=== PATIENT | female | born 1970 | race Caucasian/White ===

== ENCOUNTER 2018-08-12 17:18 | Emergency (ER) | payer MEDICAID ==
[2018-08-12] MEDS ORDERED: Acetaminophen/HYDROcodone 325-5 MG Tab PO ONE (17:19)
[2018-08-12 17:35] VITALS: BP 125/52
[2018-08-12] MEDS: LORazepam 2 MG/ML Syringe IM ONE (18:08)
--- NOTE | 2018-08-12 18:08 | EDM.PDOC ---
ED HPI GENERAL MEDICAL PROBLEM - General Chief Complaint: General Stated Complaint: MIGRAINE Time Seen by Provider: 08/12/18 17:32 Source of Information: Reports: Patient History Limitations: Reports: No Limitations - History of Present Illness INITIAL COMMENTS - FREE TEXT/NARRATIVE: Patient presents with complaints of migraine headache. has chronic headaches, does see neurology for these. Currently on Imitrex and Zofran which have not helped her today. Gets Botox injections every 3 months for these as well. Has had multiple visits in the ER in [place] for these, usually gets Ativan and Stadol for her headaches but on occasion has gotten hydrocodone from her neurologist despite the fact that narcotics are not recommended due to potentially causing rebound headaches. Admits that she got her last botox injections 2 weeks ago but has had approximately 10 migraines since that time. has allergy to Tramadol, has caused hallucinations so "neurologist is frustrated and does not know what to do with me either for these ". Cannot take NSAIDs or Toradol due to renal concerns. Has pain behind right eye, nausea and has an aura prior to these starting. No unusual symptoms from these. Is scheduled to see her primary care provider in [place] on Friday. Did call there today but was out of office until Friday. Onset: Today, Sudden Duration: Hour(s):, Constant Location: Reports: Head Quality: Reports: Sharp, Throbbing Severity: Severe Improves with: Reports: None Associated Symptoms: Reports: Nausea/Vomiting. Denies: Confusion, Chest Pain, Cough, Fever/Chills, Loss of Appetite, Shortness of Breath, Syncope, Weakness Treatments [employer] SU[employer] SPECIALIST: Reports: Acetaminophen, Other (see below) Other Treatments [employer] SUPPORT SPECIALIST: imitrex,zofran Headache Pain Score (Numeric/FACES): 10 - Related Data Allergies Allergy/AdvReac Type Severity Reaction Status Date / Time latex Allergy Intermediate Hives Verified 08/12/18 17:29 ibuprofen Allergy Renal Verified 08/08/18 13:04 Failure NSAIDS (Non-Steroidal Allergy Bleeding Verified 08/08/18 13:04 Anti-Inflamma rizatriptan benzoate Allergy Hives Verified 08/08/18 13:04 [From Maxalt] Sulfa (Sulfonamide Allergy Other Verified 08/12/18 17:29 Antibiotics) topiramate [From Topamax] Allergy Hallucinati Verified 08/08/18 13:04 ons tramadol Allergy Hallucinati Verified 08/12/18 18:01 ons toradol Allergy Renal Uncoded 07/30/18 19:21 Failure Home Meds: Home Meds Propranolol HCl 10 mg PO BID 03/06/13 [History] Cyanocobalamin (Vitamin B-12) [Cyanocobalamin Injection] 1 ml INJECT .MONTHLY [History] Multivitamin W/Iron, Minerals [Multivitamins with Iron] 1 tab PO DAILY 07/08/14 [History] Onabotulinumtoxina [Botox] 200 units SQ Q3M 06/17/17 [History] Aspirin 81 mg PO DAILY 03/05/18 [History] amLODIPine Besylate [Amlodipine Besylate] 5 mg PO DAILY 03/05/18 [History] Acetaminophen [Tylenol] 650 mg PO Q4H PRN tablet 05/17/18 [Rx] DULoxetine [Cymbalta] 20 mg PO BID 07/30/18 [History] QUEtiapine [SEROquel] 100 mg PO DAILY 07/30/18 [History] busPIRone [Buspar] 30 mg PO BID 07/30/18 [History] Folic Acid 1 mg PO DAILY 08/12/18 [History] Iron 1 tab PO DAILY 08/12/18 [History] Ondansetron [Zofran] 4 mg PO Q6H PRN 08/12/18 [History] Potassium Gluconate [Potassium] 1 tab PO DAILY 08/12/18 [History] SUMAtriptan Succinate [Imitrex] 100 mg PO BID 08/12/18 [History] Past Medical History HEENT History: Reports: Other (See Below) Other HEENT History: conjunctivitis, glasses et contacts Cardiovascular History: Reports: High Cholesterol, Hypertension Respiratory History: Reports: Bronchitis, Recurrent Gastrointestinal History: Reports: Other (See Below) Genitourinary History: Reports: Acute Renal Failure, Renal Disease Other Genitourinary History: acute kidney failure from drug interaction [employer]ATCH[employer] 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: Polycystic Ovaries, Musculoskeletal History: Reports: Back Pain, Chronic, Fracture, Osteoarthritis Neurological History: Reports: Head Trauma, Migraines, TIA Psychiatric History: Reports: Addiction, Anxiety, Bipolar, Depression, Panic Attack Endocrine/Metabolic History: Reports: Obesity/BMI 30+ Hematologic History: Reports: Anemia Other Hematologic History: Von Willebrand Coagapathy Immunologic History: Reports: None Other Immunologic History: Von Willebrand Coagapathy Oncologic (Cancer) History: Reports: None Dermatologic History: Reports: None - Infectious Disease History Infectious Disease History: Reports: Chicken Pox - Past Surgical History Head Surgeries/Procedures: Reports: None HEENT Surgical History: Reports: Tonsillectomy GI Surgical History: Reports: Bariatric Procedure, Cholecystectomy Other GI Surgeries/Procedures: polycystic tumurs Musculoskeletal Surgical History: Reports: Arthroscopic Knee, Other (See Below) Other Musculoskeletal Surgeries/Procedures:: bilateral, right ankle fracture repair Social & Family History - Family History Family Medical History: Noncontributory Musculoskeletal: Reports: Back pain, Chronic Other Musculoskeletal Family History: mother Neurological: Reports: CVA Other Neurological Family History: father Psychiatric: Reports: Other (See Below) Other Psychiatric Family History: ETOH addiction-father Oncologic: Reports: Pancreatic Other Oncologic Family History: father - Caffeine Use Caffeine Use: Reports: Soda Other Caffeine Use: 4 mtn dew/day Caffeine Use Comment: daily - Living Situation & Occupation Living situation: Reports: , with Family Occupation: Employed ED ROS GENERAL - Review of Systems Review Of Systems: See Below Constitutional: Denies: Fever, Chills, Malaise, Weakness, Decreased Appetite HEENT: Denies: Ear Pain, Sinus Problem, Throat Pain, Vertigo, Vision Change Respiratory: Denies: Shortness of Breath, Cough Cardiovascular: Denies: Chest Pain, Edema, Lightheadedness Endocrine: Denies: Fatigue GI/Abdominal: Reports: Nausea. Denies: Abdominal Pain, Vomiting : Reports: No Symptoms Musculoskeletal: Reports: No Symptoms Skin: Reports: No Symptoms Neurological: Reports: Headache. Denies: Confusion, Dizziness Psychiatric: Reports: No Symptoms ED EXAM, GENERAL - Physical Exam Exam: See Below Exam Limited By: No Limitations General Appearance: Alert, WD/WN, No Apparent Distress Eye Exam: Bilateral Eye: EOMI, PERRL Ears: Normal External Exam, Normal TMs Nose: Normal Inspection, Normal Mucosa, No Blood Throat/Mouth: Normal Inspection, Normal Oropharynx Head: Normocephalic Neck: Normal Inspection, Supple, Non-Tender Respiratory/Chest: No Respiratory Distress, Lungs Clear, Normal Breath Sounds Cardiovascular: Regular Rate, Rhythm GI/Abdominal: Normal Bowel Sounds, Soft, Non-Tender Extremities: Normal Inspection, No Pedal Edema Neurological: Alert, Oriented Skin Exam: Warm, Dry Course - Vital Signs Last Recorded V/S: Last Vital Signs Temp 98.4 F 08/12/18 17:18 Pulse 90 08/12/18 17:18 Resp 18 08/12/18 17:18 BP 125/52 L 08/12/18 17:18 Pulse Ox 100 08/12/18 17:18 - Orders/Labs/Meds Orders: Active Orders 24 hr Category Date Time Status Acetaminophen/HYDROcodone [Take Home: Acetaminophen/ Med 08/12/18 18:02 Once HYDROcod, 2 Tab Pack] 1 packet PO ONETIME ONE LORazepam [Ativan] Med 08/12/18 18:02 Once 1 mg IM ONETIME ONE Departure - Departure Time of Disposition: 18:10 Disposition: Home, Self-Care 01 Condition: Good Clinical Impression: Migraine headache Qualifiers: Migraine type: unspecified Status migrainosus presence: without status migrainosus Intractability: intractable Qualified Code(s): G43.919 - Migraine, unspecified, intractable, without status migrainosus - Discharge Information *PRESCRIPTION DRUG MONITORING PROGRAM REVIEWED*: No *COPY OF PRESCRIPTION DRUG MONITORING REPORT IN PATIENT JOAQUÍN: No Referrals: Rosendo Mayes MD [Primary Care Provider] - Additional Instructions: 1. Push fluids 2. Rest 3. Usual migraine meds 4. Follow up with primary care provider/neurology for ongoing headache or concern - My Orders Last 24 Hours: My Active Orders 08/12/18 18:02 Acetaminophen/HYDROcodone [Take Home: Acetaminophen/HYDROcod, 2 Tab Pack] 1 packet PO ONETIME ONE LORazepam [Ativan] 1 mg IM ONETIME ONE - Assessment/Plan Last 24 Hours: My Active Orders 08/12/18 18:02 Acetaminophen/HYDROcodone [Take Home: Acetaminophen/HYDROcod, 2 Tab Pack] 1 packet PO ONETIME ONE LORazepam [Ativan] 1 mg IM ONETIME ONE
[2018-08-12] MEDS: Take Home: Acetaminophen/HYDROcodone 325-5 MG, 2 Tab Pack PO ONE (18:11)
== END 2018-08-12 18:19 | disposition home or self-care (01) ==
LOC: CC.ED 17:18
DX: G43.919 Migraine, unspecified, intractable, without status migrainosus (principal); E78.00 Pure hypercholesterolemia, unspecified; I10 Essential (primary) hypertension; F41.9 Anxiety disorder, unspecified; F31.9 Bipolar disorder, unspecified; E66.9 Obesity, unspecified; Z91.040 Latex allergy status; Z88.6 Allergy status to analgesic agent; Z88.5 Allergy status to narcotic agent; Z79.899 Other long term (current) drug therapy; Z88.8 Allergy status to other drugs, medicaments and biological substances; Z79.82 Long term (current) use of aspirin; Z68.38 Body mass index [BMI] 38.0-38.9, adult
CPT/HCPCS: 96372; 99283; A9270-GY; J2060